=== PATIENT | male | born 1960 | race Two or more races ===

== ENCOUNTER 2018-12-25 05:03 | Inpatient (IN) | payer BC, OTHER ==
[~2018-12-25] VITALS: Ht 175.3 cm; Wt 165.2 kg
--- NOTE | 2018-12-25 05:12 | NUR ---
MS RN NOTES PT ARRIVED ON UNIT FROM HOME IN STABLE CONDITION. PT A/O X4 AND ABLE TO MAKE NEEDS KNOWN. NO S/S OF ACUTE DISTRESS OR SOB NOTED. RESPIRATIONS EVEN AND UNLABORED. PT DENIES PAIN AT THIS TIME. PT SCHEDULED FOR SURGERY. CALL LIGHT WITHIN REACH. WILL CONTINUE TO MONITOR.
[2018-12-25] MEDS ORDERED: CELECOXIB 100 MG CAPSULE PO ONE (05:30)
[2018-12-25] MEDS ORDERED: oxyCODONE/APAP (5/325 MG) 1 UDTAB TABLET PO ONE (05:30)
[2018-12-25] MEDS ORDERED: ACETAMINOPHEN 650 MG/20.3 ML UDC PO ONE (05:30)
[2018-12-25 05:41] VITALS: BP 139/82
[2018-12-25] MEDS ORDERED: BACITRACIN 50000 UNITS/VIAL ONE (05:55)
[2018-12-25] MEDS ORDERED: oxyCODONE HCL SR 10MG TAB.SR.12H PO ONE (06:00)
[2018-12-25] MEDS ORDERED: ACETAMINOPHEN 325 MG TABLET PO ONE (06:00)
[2018-12-25] MEDS ORDERED: oxyCODONE IR immediate release 5 MG PO ONE (06:30)
--- NOTE | 2018-12-25 06:30 | NUR ---
MS RN NOTES PT LEFT WAS PICKED UP FROM UNIT FOR SURGERY IN STABLE CONDITION.
[2018-12-25] MEDS ORDERED: MIDAZOLAM HCL 2 MG/2ML VIAL ONE (06:33)
[2018-12-25] MEDS ORDERED: BUPIVACAINE 0.5 % PF 150 MG/30 ML VIAL ONE ×2 (06:51→08:38)
[2018-12-25] MEDS ORDERED: BUPIVACAINE 0.75% DEXT-PF 2 ML AMPUL ONE (06:51)
--- NOTE | 2018-12-25 07:10 | NUR ---
MS/RN NOTE RECEIVED REPORT FROM WAN SUPPORT SPECIALIST NURSE. THE PATIENT IS IN OR SINCE 619.
[2018-12-25] MEDS ORDERED: TRANEXAMIC ACID 3,000 MG in SODIUM CHLORIDE IRRIG SOLUTION 70 ML IR ONE (08:00)
[2018-12-25] MEDS ORDERED: HYDROMORPHONE INJ 2 MG/ML DISP.SYRIN ONE ×2 (09:28→09:37)
[2018-12-25 10:45] VITALS: BP 142/79
--- NOTE | 2018-12-25 10:45 | NUR ---
MS/RN NOTE THE PATIENT RECEIVED IN BED. ALERT AND ORIENTED X4. RECEIVING OXYGEN AT 2L/MIN VIA NASAL CANNULA AND DENIES SOB. RESPIRATION REGULAR AND UNLABORED. DENIES PAIN. RIGHT KNEE DRESSING INTACT. ORIENTATION TO THE ROOM GIVEN. BED LOW AND LOCKED. SIDE RAILS UP X2. CALL LIGHT WITHIN REACH. WILL CONTINUE TO MONITOR.
[2018-12-25 11:00] VITALS: BP 124/75
[2018-12-25] MEDS ORDERED: NALOXONE HCL 0.4 MG/ML AMPUL IV PRN (11:00)
[2018-12-25] MEDS ORDERED: MAGNESIUM HYDROXIDE 30 ML UDC PO PRN (11:00)
[2018-12-25] MEDS ORDERED: ONDANSETRON HCL/PF 4 MG/2 ML VIAL IVP PRN (11:00)
[2018-12-25] MEDS ORDERED: MAG HYDROX/AL HYDROX/SIMETH 30 ML UDC PO PRN (11:00)
[2018-12-25] MEDS ORDERED: ZOLPIDEM TARTRATE 5 MG TABLET PO PRN (11:00)
[2018-12-25] MEDS ORDERED: MENTHOL/CETYLPYRD (CEPACOL) 1 LOZ LOZENGE MM PRN (11:00)
[2018-12-25] MEDS ORDERED: CLONIDINE HCL 0.1 MG TABLET PO PRN (11:00)
[2018-12-25] MEDS ORDERED: diphenhydrAMINE HCL 25 MG CAPSULE PO PRN (11:00)
[2018-12-25] MEDS ORDERED: ACETAMINOPHEN 325 MG TABLET PO PRN (11:00)
[2018-12-25] MEDS ORDERED: HYDROCODONE/APAP 10/325MG 1 EA TABLET PO PRN (11:00)
[2018-12-25 11:15] VITALS: BP 135/81
[2018-12-25 11:30] VITALS: BP 122/86
[2018-12-25] MEDS ORDERED: FELO10TA3 PO (11:40)
[2018-12-25] MEDS ORDERED: LOSA1TAB39 PO (11:40)
[2018-12-25] MEDS: oxyCODONE IR immediate release 5 MG PO PRN ×4 (13:01→23:18)
[2018-12-25] MEDS: HYDROMORPHONE INJ 2 MG/ML DISP.SYRIN SQ PRN ×2 (14:13→21:27)
[2018-12-25] MEDS: IV D5/0.45 NACL 1,000 ML IV PRN (14:37)
--- NOTE | 2018-12-25 14:59 | NUR ---
TELE/RN NOTE THE PATIENT IS SEEN AND EXAMINED BY DR JIMENEZ WITH NEW ORDER OF VANCOMYCIN PHARMACY TO DOSE AND ANCEF 1GM Q8HR IV. THE ORDERS ARE READ AND VERIFIED. NOTED AND CARRIED OUT. Addendum: 12/25/18 at 1538 by ADELE FORD RN MS/RN NOTE ENTERED ON WRONG PATIENT. CORRECTION IS DONE.
--- NOTE | 2018-12-25 15:48 | NUR ---
MS/RN NOTE VANCOMYCIN PHARMACY TO DOSE AND ANCEF 1 GM Q8HR ORDERS ARE DISCONTINUED PER DR JIMENEZ.
[2018-12-25] MEDS: ANCEF 1 GM/50 ML D5W IV SCH ×4 (15:58→23:06)
[2018-12-25] MEDS: DOCUSATE SODIUM 100 MG CAPSULE PO SCH (16:04)
[2018-12-25] MEDS: SENNOSIDES 8.6 MG TABLET PO SCH (16:04)
--- NOTE | 2018-12-25 18:22 | NUR ---
MS/RN NOTE THE PATIENT ALERT AND ORIENTED X4. RECEIVING OXYGEN AT 2L/MIN VIA NASAL CANNULA AND SATURATION IS AT 97%. DENIES SOB. RESPIRATION REGULAR AND UNLABORED. DENIES PAIN. THE PATIENT IN NO APPARENT DISTRESS. RIGHT HAND G 20 PATENT AND D5 1/2 NS INFUSING AT 125ML/HR AND NO S/S INFILTRATION NOTED. RIGHT KNEE DRESSING INTACT WITH NO STIKE TRUE. BED LOW AND LOCKED. SIDE RAILS UP X2 CALL LIGHT WITHIN REACH. WILL ENDORSE TO PUNCH HAND.
--- NOTE | 2018-12-25 19:15 | NUR ---
MS RN NOTE RECEIVED PT IN STABLE CONDITION A&0 X4, ABLE TO MAKE NEEDS KNOWN. NO SIGNS OF SOB OR DISTRESS. NO C/O PAIN. R KNEE SX SITE INTACT WITH NO INDICATIONS OF INFECTION. R HAND #20 IV INTACT WITH IVF INFUSING, TOLERATING WELL. SAFETY PRECAUTIONS IN PLACE: BED LOW, LOCKED, UPPER RAILS UP, AND CALL LIGHT WITHIN REACH. WILL CONT. TO MONITOR.
--- NOTE | 2018-12-25 19:59 | NUR ---
MS RN NOTE PRN OXYCODONE 10 MG GIVEN FOR PAIN 6/10 LOCATED IN THE R KNEE. WILL CONT TO MONITOR.
[2018-12-25 20:00] VITALS: BP 113/55
[2018-12-25] MEDS: FAMOTIDINE (20 MG) 20 MG TABLET PO SCH (21:19)
--- NOTE | 2018-12-25 21:27 | NUR ---
MS RN NOTE PRN DILAUDID 1 MG SQ GIVEN FOR PAIN 8/10 LOCATED IN R KNEE. WILL CONT TO MONITOR.
[2018-12-25] MEDS ORDERED: CEFAZOLIN 1 GM in IV NS 0.9% 50 ML IV SCH (23:00)
--- NOTE | 2018-12-25 23:18 | NUR ---
MS RN NOTE PRN OXYCODONE 10 MG GIVEN FOR PAIN 6/10 LOCATED IN R KNEE. WILL CONT TO MONITOR.
[2018-12-26] MEDS: HYDROMORPHONE INJ 2 MG/ML DISP.SYRIN SQ PRN ×5 (01:15→19:35)
--- NOTE | 2018-12-26 01:15 | NUR ---
MS RN NOTE PRN DILAUDID 1 MG SQ GIVEN FOR PAIN 810 LOCATED IN R KNEE. WILL CONT. TO MONITOR.
[2018-12-26] MEDS: oxyCODONE IR immediate release 5 MG PO PRN ×2 (03:37→22:00)
--- NOTE | 2018-12-26 03:37 | NUR ---
MS RN NOTE PRN OXYCODONE 5 MG GIVEN FOR PAIN 3/10 LOCATED IN THE R KNEE. ONLY 1 TABLET WAS TAKEN FROM [facility]. COUNTED WITH HOWARD CHARGE NURSE. WILL CONT TO MONITOR.
--- NOTE | 2018-12-26 05:32 | NUR ---
MS RN NOTE PRN DILAUDID 1 MG SQ GIVEN FOR PAIN IN R KNEE 06/19. WILL CONT. TO MONITOR.
--- NOTE | 2018-12-26 06:24 | NUR ---
MS RN NOTE PT IN STABLE CONDITION A&0 X4, ABLE TO MAKE NEEDS KNOWN. NO SIGNS OF SOB OR DISTRESS. PAIN MANAGED THROUGHOUT SHIFT ORDERED BY MD. R KNEE SX SITE INTACT WITH NO INDICATIONS OF INFECTION. R HAND #20 IV INTACT WITH IVF INFUSING, TOLERATING WELL. SAFETY PRECAUTIONS IN PLACE: BED LOW, LOCKED, UPPER RAILS UP, AND CALL LIGHT WITHIN REACH. WILL CONT. TO MONITOR AND ENDORSE TO NEXT SHIFT FOR SANA.
--- NOTE | 2018-12-26 07:50 | NUR ---
GLOBAL REGULATORY AFFAIRS MANAGER OPENING NOTES RECEIVED PT SITTING UP IN BED, 90 DEGREE ANGLE. PT IS A/O X4, AFEBRILE. RESPIRATIONS ARE EVEN AND UNLABORED, NOT IN ANY ACUTE DISTRESS NOTED. DENIES SOB, N/V. C/O PAIN TO RIGHT LEG /. WILL MEDICATE ORDERED. IV SITE TO RIGHT HAND INTACT, NO INFILTRATION NOTED. DRESSING KEPT CLEAN AND DRY. SAFETY MEASURES ARE IN PLACE. INSTRUCTED PT TO USE CALL LIGHT WHEN ASSISTANCE IS NEEDED, CALL LIGHT IS LEFT WITHIN REACH. WILL CONTINUE TO MONITOR THROUGHOUT SHIFT FOR CONTINUITY OF CARE.
[2018-12-26 08:00] VITALS: BP 99/62
[2018-12-26] MEDS: TAMSULOSIN 0.4 MG CAP.SR.24H PO SCH (08:48)
[2018-12-26] MEDS: SENNOSIDES 8.6 MG TABLET PO SCH ×2 (08:48→16:08)
[2018-12-26] MEDS: DOCUSATE SODIUM 100 MG CAPSULE PO SCH ×2 (08:48→16:08)
[2018-12-26] MEDS: FAMOTIDINE (20 MG) 20 MG TABLET PO SCH ×2 (08:48→21:56)
--- NOTE | 2018-12-26 08:58 | NUR ---
PLATE GLASS INSTALLER NOTES-- ADMINISTERED DILAUDID 1MG IV FOR PL 10/10 TO RIGHT LEG. WILL MONITOR EFFECTIVELY.
--- NOTE | 2018-12-26 11:15 | NUR ---
MAIL SUPERINTENDENT NOTES-- DRESSING CHANGE DONE WITH ORTHO EARLY CHILDHOOD WORKER, NURSE TO ASSIST.
[2018-12-26] MEDS: ASPIRIN 325 MG TABLET PO SCH ×2 (11:54→16:08)
--- NOTE | 2018-12-26 14:07 | NUR ---
CRATE OPENER NOTES-- BLADDER SCAN WITH PVR DONE, RESULTED WITH >376. NOTIFIED ALBERTO NAJERA W/ ORDERS TO DO STRAIGHT CATH. ORDERS READ BACK AND VERIFIED, NOTED AND CARRIED OUT.
--- NOTE | 2018-12-26 14:48 | NUR ---
MS RN NOTES-- ADMINISTERED DILAUDID 1MG IV FOR PL10/10 TO RIGHT KNEE. WILL NOTE EFFETIVENESS.
--- NOTE | 2018-12-26 15:42 | NUR ---
MS RN NOTES-- STRAIGHT CATH DONE WITH 1000 CC OUTPUT DRAINED CLEAR/YELLOW URINE W/ NO SEDIMENTS OT HEMATURIA NOTED.
[2018-12-26 16:00] VITALS: BP 131/84
[2018-12-26] MEDS: IV D5/0.45 NACL 1,000 ML IV PRN (16:08)
--- NOTE | 2018-12-26 18:34 | NUR ---
MS RN CLOSING NOTES ALL DUE MEDS GIVEN, NEEDS MET AND RENDERED. PT IS A/O X4, AFEBRILE. RESPIRATIONS ARE EVEN AND UNLABORED, NOT IN ANY ACUTE DISTRESS NOTE. DILAUDID NOTED TO BE EFFECTIVE. IV SITE TO RIGHT HAND INTACT, NO INFILTRATION NOTED. DRESSING KEPT CLEAN AND DRY. SAFETY MEASURES ARE IN PLACE. REMINDED PT TO USE CALL LIGHT WHEN ASSISTANCE IS NEEDED, CALL LIGHT IS LEFT WITHIN REACH. WILL ENDORSE TO NEXT SHIFT FOR CONTINUITY OF CARE.
--- NOTE | 2018-12-26 19:35 | NUR ---
MS/RN RECEIVE PATIENT AWAKE, ALERT, ORIENTED, S/P RIGHT KNEE ARTHROPLASTY ON 12/25/18, TORITO WRAP DRESSING AT RLE INTACT WITH KNEE IMMOBILIZER, C/O PAIN, 07/19, MEDICATED WITH DILAUDID 1 MG IV ORDERED, WILL MONITOR.
[2018-12-26 20:16] VITALS: BP 127/69
--- NOTE | 2018-12-26 23:53 | NUR ---
MS/RN PATIENT IS SLEEPING AT THIS TIME, AROUSABLE, APPEAR COMFORTABLE, NO SIGNS OF DISTRESS NOTED, CALL LIGHT IN REACH. WILL CONTINUE TO MONITOR.
[2018-12-27 00:19] VITALS: BP 124/70
[2018-12-27] MEDS: HYDROMORPHONE INJ 2 MG/ML DISP.SYRIN SQ PRN (01:01)
[2018-12-27 04:39] VITALS: BP 129/58
--- NOTE | 2018-12-27 06:17 | NUR ---
MS/RN PATIENT IS STILL SLEEPING, AROUSES EASILY, APPEAR COMFORTABLE, NO SIGNS OF DISTRESS NOTED, ALL NEEDS ATTENDED AT THIS TIME, WILL CONTINUE TO MONITOR.
--- NOTE | 2018-12-27 07:20 | NUR ---
RN OPENING NOTES PT AWAKE AND RESTING IN BED. NO COMPLAINTS OF PAIN, SOB OR DISTRESS AT THIS TIME. PT STATES THAT HE "IS READY TO GO HOME". WILL FOLLOW UP WITH DISCHARGE PLANNING. SAFETY PRECAUTIONS IN PLACE, BED IN LOWEST LOCKED POSITION, X2 SIDE RAILS UP AND CALL LIGHT WITHIN REACH. WILL CONTINUE TO MONITOR.
[2018-12-27 08:00] VITALS: BP 125/60
[2018-12-27] MEDS: TAMSULOSIN 0.4 MG CAP.SR.24H PO SCH (08:10)
[2018-12-27] MEDS: FAMOTIDINE (20 MG) 20 MG TABLET PO SCH (08:10)
[2018-12-27] MEDS: SENNOSIDES 8.6 MG TABLET PO SCH (08:10)
[2018-12-27] MEDS: ASPIRIN 325 MG TABLET PO SCH (08:11)
[2018-12-27] MEDS: DOCUSATE SODIUM 100 MG CAPSULE PO SCH (08:11)
[2018-12-27] MEDS ORDERED: ASPI-992 PO (10:42)
--- NOTE | 2018-12-27 13:15 | NUR ---
BRICK BURNER HEAD NOTES PT VITAL SIGNS STABLE AT DISCHARGE. FRONT WHEEL WALKER ORDERED AND DELIVERED FOR PATIENT USE AT HOME. ALL PATIENT DISCHARGE PAPERWORK DISCUSSED, SIGNED, COPIED, AND GIVEN TO THE PATIENT. PT GIVEN [facility] INFORMATION GIVEN TO THE PATIENT. PER PATIENT'S HOME HEALTH ALREADY INITIATED. ALL PATIENT BELONGINGS RETURNED HOME WITH PATIENT. PATIENT'S BESSIE AND DAUGHTER TO [employer] PROCESS[employer] PROJECT PLANNER PATIENT IN PRIVATE CAR AND WILL TAKE PATIENT HOME. PT LEFT UNIT AT 1315 VIA WHEELCHAIR. Addendum: 12/27/18 at 1331 by YOBANI CLAROS RN PT IV AND ID BAND REMOVED BEFORE DISCHARGE OFF OF UNIT.
== END 2018-12-27 13:13 | disposition home health service (06) | DRG 470 ==
LOC: DS 05:03 → MED 05:05 → TELE 12-26 06:38 → MED 12-26 21:00
PROVIDERS: ADMIT Internal Medicine; ATTEND Nurse Practitioner Acute Care
PROC: 0SRC0J9 Replacement of Right Knee Joint with Synthetic Substitute, Cemented, Open Approach (ICD-10-PCS; principal; 2018-12-25)
DX: M17.11 Unilateral primary osteoarthritis, right knee (principal); D68.59 Other primary thrombophilia; Z68.43 Body mass index [BMI] 50.0-59.9, adult; E66.01 Morbid (severe) obesity due to excess calories; I10 Essential (primary) hypertension; F17.210 Nicotine dependence, cigarettes, uncomplicated; R33.9 Retention of urine, unspecified
CPT/HCPCS: 36415; 85027-TC; 86850-TC; 87081-TC; 88305-TC; 88311-TC; 97110-TC; 97116-TC; 97530-TC; 97760-TC; A4216; A4217; A6402; C1713; G0378; J0690; J1100; J1170; J2250; J2405; J2704; J3490; J7060